=== PATIENT | female | born 1985 | race Caucasian/White ===

== ENCOUNTER 2018-10-18 10:33 | Emergency (ER) | payer BC ==
[2018-10-18 11:30] VITALS: BMI 25.8
[2018-10-18 12:13] LABS: SQUAMOUS EPITHIAL < 1 /hpf (0-5); URINE BILIRUBIN NEGATIVE (NEGATIVE); URINE BLOOD NEGATIVE (NEGATIVE); URINE CLARITY CLEAR (Clear); URINE COLOR YELLOW (YELLOW); URINE GLUCOSE (UA) NEG (NEGATIVE); URINE LEUKOCYTE ESTERASE NEG Leu/uL (Negative); URINE PROTEIN NEGATIVE (NEGATIVE); URINE UROBILINOGEN 0.2-1.0 mg/dL (0.2-1.0)
[2018-10-18 17:54] VITALS: BP 120/71; PULSE 70; RESP 18; TEMP 98.5; O2SAT 100
--- NOTE | 2018-10-18 20:04 | OBHP ---
Datetime: 10/18/2018 12:29 IP Adm Impression: , intrauterine IP Admit Plan: Observation/Evaluation Admit Comment, IP Provider: 33 y/o 17.2 wks LMPof 06/19/18 with EDC of 03/26/19 presents to clini c for vaginal bleeding. Patient had sexual activity 2 am tonight after which bleeding started. Bleedi ng is vaginal, bright red, that patient noticed especially while urinating. Noticed blood clot once. Denies CTx, urinary symptoms, F/C/N/V/D. Hx: Regular visits, unremarkable course, Dr. Mclean in [place]. PMHx: Denies PSHx: Denies Allergies: NKDA Meds; PNVs Hospitalziations: Denies Social Hx: Denies alcohol/etoh/drugs F/H: Denies VItals: WNL PE: General: NAD Chest: S1S2 present Lungs: CTAB Abdomen: Mild lower abdominal tenderness, NT, ND Ext: WNL A/P: 33 y/o 17.2 wks LMPof 06/19/18 with EDC of 03/26/19 presents to clinic for vaginal bleedin g. FHR- 145-152 bpm UA and OB US for cervical length ordered Patient decided to leave AMA, declined US. Patient advised about possible risk to mother and baby is she leaves AMA including labor, pregnency loss and bleeding. Patient verbalized understanding risks and signed AMA form. Patient given opportunity to ask question. All questions answered. Dr. Wilhelm present at bedside who also counseled patient at length about possible risks/complica tions of leaving AMA. Next appointment on 10/30/[address] Mclean Case discussed with Dr. James Davidson, PGY1 Addendum: I saw the patient in OB ED. Patient complains of some vaginal bleeding after intercourse. At thi s time, patient declining having ultrasound done or exam. I discussed with patient possible causes o f vaginal bleeding during and recommended her having evaluation to ascertain cause of bleed ing. Patient declining any evaluation. Discussed with patient risks including loss of . A patient questions answered. Patient signed AGAINST MEDICAL ADVICE form to leave hospital. Pelvic Type - PN: Not Done Extremities - PN: Normal Abdomen - PN: Normal Back - PN: Normal Breast - PN: Normal Lungs - PN: Normal Heart - PN: Normal Thyroid - PN: Normal Neurologic - PN: Normal HEENT - PN: Normal General - PN: Normal FHR - Baseline A Provider: 145 Contraction Comments Provider: None EGA AdmitDate IP: 17.2 Vital Signs Provider: Reviewed; Within Normal Limits IP Chief Complaint: Vaginal bleeding NICHD Decel Fetus A IP Provider: None Genitourinary Exam: Not Done DTRs - PN: Normal
== END 2018-10-18 12:20 | disposition left against medical advice (07) ==
LOC: H.EROB2 10:33
DX: O20.9 Hemorrhage in early pregnancy, unspecified (principal); Z3A.17 17 weeks gestation of pregnancy